=== PATIENT | female | born 1955 | race Caucasian/White ===

== ENCOUNTER 2022-09-03 14:44 | Outpatient (REF) | payer BC, SELFPAY ==
[2022-09-06 00:54] LABS: HPV mRNA E6/E7 rflx Not Detected (Not Detected)
== END 2022-09-03 14:45 | disposition home or self-care (01) ==
LOC: HO.LNP 14:44
PROVIDERS: PCP Hospitalist; Visit Provider Advanced Practice Midwife
DX: Z01.419 Encounter for gynecological examination (general) (routine) without abnormal findings (principal); Z11.51 Encounter for screening for human papillomavirus (HPV); N95.1 Menopausal and female climacteric states
CPT/HCPCS: 87624; 88142

== ENCOUNTER 2024-05-01 13:03 | Outpatient (AMB) | payer BC, SELFPAY ==
--- NOTE | 2024-05-01 13:05 | A.OFFVIS_ITS ---
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 She is doing well with concerns: She feels like she is not emptying completely, the flow has changed, occasional pressure. She denies any dysuria, odors or frequency. History of sling procedure. Attempting to eat a healthy diet with calcium and vitamin D and stays active with exercise aerobics and walking. Currently not sexually active. Denies any vaginal dryness or irritation. STI testing offered; she declined. Last pap smear; 2022. Last mammogram; patient reports up-to-date done at [facility] no copies on hand today. Colonoscopy is UTD. Denies any family history of breast or ovarian. FH of colon cancer-mom. [facility] Medical History High cholesterol Glaucoma Surgical History Status post creation of urethral sling by suprapubic approach Hx of section Family History Mother Colon cancer Dementia High blood pressure Father Heart disease COPD (chronic obstructive pulmonary disease) Social History Household Members: Spouse Alcohol intake: never Patient Tobacco Use Status: Never used Tobacco Current occupation: retired Female Reproductive History Menstrual Total pregnancies: 3 Full term: 2 Number of Living Children: 2 Ab spontaneous: 1 Date of last pap smear: 09/03/22 (neg pap and hpv) Review of Systems Const All systems reviewed & are unremarkable except as noted in HPI and below Reports as per HPI Eyes Reports no additional complaints ENT Reports no additional complaints Card Reports no additional complaints Resp Reports no additional complaints GI Reports as per HPI and Reports no additional complaints Reports as per HPI Musc Reports no additional complaints Skin/Breast Reports as per HPI Neuro Reports no additional complaints Psych Reports no additional complaints Endo Reports no additional complaints Howie/Lymph Reports no additional complaints Aller/Immun Reports no additional complaints Physical Exam Vital Signs: Last Vital Signs BP 110/66 05/01/24 13:07 BMI result Body Mass Index 26.8 Const General: cooperative, healthy appearing, no acute distress, well developed and alert Orientation/consciousness: patient oriented x3 HEENT Head: Yes normal to inspection Eyes General: appearance normal, both eyes and all related structures Neck Neck: Yes normal visual inspection Thyroid: Thyroid normal Chest Chest palpation & inspection: normal inspection of the chest and other (no puckering, dimpling, peau de orange, retraction, discharge, masses) Breast/axilla inspection: normal inspection of the breasts Breast/axilla palpation: normal palpation of the breasts Resp Effort & Inspection: normal respiratory effort GI Inspection: Yes normal to inspection Palpation (GI): Soft to palpation Rectal Exam - Female: deferred General: Yes bladder normal to palpation External Female Exam: normal external appearance and normal appearance of the urethra Speculum Exam - Vagina: normal appearance of the vagina, normal palpation, normal vaginal discharge and vagina atrophic Speculum Exam - Cervix: normal appearance of the cervix and normal palpation Bimanual exam- vagina & uterus: normal bimanual exam, normal palpation, uterine size normal, bladder normal to palpation, normal palpation and non-tender Bimanual Exam- Adnexa, other: normal rectovaginal exam, no masses and cystocele Skin General skin exam: no rashes or lesions noted Rashes: no rashes Neuro General: patient oriented x3 Cognition (Neuro): normal cognition Extrem General: Yes normal to inspection Psych Attitude: cooperative Thought process: Normal thought process present Results AMB Urinalysis, Automated UA Leukoctes 0 Heriberto/uL Last Edit by RICKY Gregory on 05/01/24 14:56 UA Nitrite Negative Last Edit by RICKY Gregory on 05/01/24 14:56 UA Urobilinogen 0 mg/dL Last Edit by RICKY Gregory on 05/01/24 14:5 6 UA Protein 0 mg/dL Last Edit by RICKY Gregory on 05/01/24 14:56 UA pH 6.0 Last Edit by RICKY Gregory on 05/01/24 14:56 UA Blood 0 Onesimo/uL Last Edit by Nancy RICKY Barnes on 05/01/24 14:56 UA Specific [place] 1.015 Last Edit by NancyRICKY Mcgraw on 05/01/24 14:56 UA Ketone Negative Last Edit by Nancy RICKY Barnes on 05/01/24 14:56 UA Bilirubin 0 mg/dL Last Edit by NancyRICKY Mcgraw on 05/01/24 14:56 UA Glucose 0 mg/dL Last Edit by RICKY Gregory on 05/01/24 14:56 Results Reviewed Results Reviewed: Laboratory Last Values Urine pH (Auto) 6.0 05/01/24 14:54 Specific [place] (Auto) 1.015 05/01/24 14:54 Urine Protein (Auto) 0 mg/dL 05/01/24 14:54 Glucose (UA)(Auto) 0 mg/dL 05/01/24 14:54 Urine Ketones (Auto) Negative 05/01/24 14:54 Urine Blood (Auto) 0 Onesimo/uL 05/01/24 14:54 Urine Nitrite (Auto) Negative 05/01/24 14:54 Urine Bilirubin (Auto) 0 mg/dL 05/01/24 14:54 Urine Urobilinogen (Auto) 0 mg/dL 05/01/24 14:54 Leukocyte Esterase (Auto) 0 Heriberto/uL 05/01/24 14:54 Assessment & Plan Assessment & Plan (1) Encounter for well woman exam with routine gynecological exam: Code(s): Z01.419 - Encounter for gynecological examination (general) (routine) without abnormal findings Category: Medical (2) Sensation of pressure in bladder area: Code(s): R39.89 - Other symptoms and signs involving the genitourinary system Plan Discussed: Current recommendations for pap smears per ASCCP guidelines. Breast awareness, periodic self breast exams and yearly mammogram. Maintain a healthy lifestyle, well balanced diet including Calcium 1,200 mg and Vitamin D 600 IU daily, and routine exercise. She would prefer to have a urology consult in the area where she lives. She is going to research providers within her area code and let me know where she wants to go for her referral to urology. Contact the office with any postmenopausal bleeding. Patient verbalizes understanding and agrees to the plan of care. She was given opportunity to ask questions and all questions were answered to the best of my ability. 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 This note is constructed using voice recognition software. While every effort has been made to ensure accuracy, circular saw edge fuser errors may have been included Orders: Orders AMB Urinalysis Automated Today R39.89 - Other symptoms and signs involving the genitourinary system Coding Level of Care Code Est Pt Prev Care >65y(12585) Diagnoses Encounter for well woman exam with routine gynecological exam Z01.419 Sensation of pressure in bladder area R39.89
[2024-05-01 13:07] VITALS: BP 110/66; BMI 26.8
== END 2024-05-01 14:33 | disposition home or self-care (01) ==
LOC: HO.HWS 13:03
PROVIDERS: PCP Hospitalist; Visit Provider Advanced Practice Midwife
DX: Z01.419 Encounter for gynecological examination (general) (routine) without abnormal findings (principal); R39.89 Other symptoms and signs involving the genitourinary system
CPT/HCPCS: 99397

== ENCOUNTER → 2024-05-01 13:03 | Outpatient (BNVA) | payer BC, SELFPAY | PROVIDERS: PCP Hospitalist; Visit Provider Advanced Practice Midwife | DX: Z01.419 Encounter for gynecological examination (general) (routine) without abnormal findings (principal); R39.89 Other symptoms and signs involving the genitourinary system | CPT/HCPCS: 81003 ==